=== PATIENT | male | born 1950 | race Caucasian/White ===

== ENCOUNTER 2016-12-22 01:21 | Emergency (ER) | payer MEDICARE, OTHER ==
--- NOTE | 2016-12-22 02:37 | EDM.PDOC ---
ED HPI GENERAL MEDICAL PROBLEM - General Chief Complaint: CPR in Progress Stated Complaint: CODE 100 Time Seen by Provider: 12/22/16 01:25 Source of Information: Reports: EMS, EMS Notes Reviewed History Limitations: Reports: Other (comatose) - History of Present Illness INITIAL COMMENTS - FREE TEXT/NARRATIVE: James Poon collapsed outside a [employer] in [place], [place] about midnight, and was discovered after departure. EMS summoned and he was intubated and CPR commenced continuously. IO was established in the L lower leg. Upon arrival at [facility] ED, his ekg tracing noted no active electrical activity, color dusky, BP unobtainable, and pupils fixed and dilated. He was pronounced at 1:21 am CDST. ED ROS GENERAL - Review of Systems Review Of Systems: Unable To Obtain ED EXAM, CPR - Physical Exam Exam: See Below Limited By: Unresponsive General Appearance: Other (no vital signs) Eye Exam: Bilateral Eye: Abnormal Pupil Ears: Normal External Exam Nose: Normal Inspection Throat/Mouth: Other (airway present) Head: Facial Swelling (abrasion to left side of scalp) Respiratory Chest: Other (no active respirations) Cardiovascular: Absent Heart Sounds, CPR In Progress GI/Abdominal Exam (Abbreviated): Distended (Male) Exam: Deferred 0: Right Carotid, Left Carotid, Femoral (R), Femoral (L) Extremities: Mottled, Pallor Neurological: Unresponsive Skin Exam: Cool, Cyanosis Course - Vital Signs Text/Narrative:: Pronounced at 1:21 am CDST. Departure - Departure Time of Disposition: 02:30 Disposition: 20 Preliminary Cause of *Q: Cardiac arrest Clinical Impression: Cardiac arrest - Discharge Information Forms: ED Department Discharge - Problem List & Annotations (1) Sudden cardiac arrest SNOMED Code(s): 857869015 Code(s): I46.9 - CARDIAC ARREST, CAUSE UNSPECIFIED Status: Acute Current Visit: Yes - Problem List Review Problem List Initiated/Reviewed/Updated: No - Assessment/Plan Plan: Notification of next of kin per law enforcement.
[2016-12-22 06:22] VITALS: BP 00/00
== END 2016-12-22 03:30 | disposition expired ==
LOC: FB.ED 01:21
DX: I46.9 Cardiac arrest, cause unspecified (principal)
CPT/HCPCS: 92950; 99282; 99285